=== PATIENT | female | born 1995 | race Caucasian/White ===

== ENCOUNTER 2017-12-19 00:43 | Emergency (ER) | payer OTHER ==
[~2017-12-19] VITALS: Ht 154.9 cm; Wt 43.9 kg
[2017-12-19 00:47] VITALS: BP 136/90
[2017-12-19] MEDS ORDERED: IBUPROFEN 200 MG TABLET PO ONE (01:30)
[2017-12-19] MEDS ORDERED: IBUPROFEN 200 MG TABLET ONE (01:33)
[2017-12-19] MEDS ORDERED: BACITRACIN ZINC OINT 500U/GM, 0.9 GM ONE (02:11)
== END 2017-12-19 02:34 | disposition home or self-care (01) ==
LOC: ED 02:30
DX: G89.11 Acute pain due to trauma (principal); M25.562 Pain in left knee; M79.644 Pain in right finger(s); R07.89 Other chest pain; V40.5XXA Car driver injured in collision with pedestrian or animal in traffic accident, initial encounter; Y93.89 Activity, other specified; Y92.89 Other specified places as the place of occurrence of the external cause; Y99.8 Other external cause status
CPT/HCPCS: 71046; 99284